=== PATIENT | male | born 1985 ===

== ENCOUNTER 2018-12-24 12:47 | Emergency (ER) | payer OTHER ==
--- NOTE | 2018-12-24 14:08 | ED PDOC ---
HPI: Psych/Substance Abuse Time Seen by Provider: 12/24/18 12:58 Chief Complaint (Nursing): Psychiatric Evaluation Chief Complaint (Provider): Psychiatric Evaluation History Per: Family (mother) Onset/Duration Of Symptoms: Days (x1 week) Current Symptoms Are (Timing): Still Present Additional History Per: Patient Additional Complaint(s): 33 year old male with pmhx of depression presents to the ED with mother for a psychiatric evaluation. Mother reports that earlier today patient's father asked if he moved something in the bathroom, and this triggered him to started yelling at his father. She also states that over the past week patient has been not wanting to leave their home, unwilling to take his psych meds, and not seeing his psychiatrist, which is unlike him. Mother notes there was no physical aggression, but his verbal aggression today prompted this eval. When asked patient why he is here today, he states that it was for the worms that were in his stomach which he has since got rid of. When asked his name, he said his name was "Elaine," but he was able to give the correct date of 12/24/18; however, he thinks he is here with his cousin and does not know what hospital he is in. Otherwise, denies suicidal ideation, drug use, and alcohol use. PMD: none provided Past Medical History Reviewed: Historical Data, Nursing Documentation, Vital Signs Vital Signs: Last Vital Signs Temp 98.8 F 12/24/18 12:49 Pulse 110 H 12/24/18 12:49 Resp 16 12/24/18 12:49 BP 184/125 H 12/24/18 12:49 Pulse Ox 98 12/24/18 12:49 - Medical History PMH: Depression - Surgical History Surgical History: No Surg Hx - Family History Family History: States: Unknown Family Hx - Living Arrangements Living Arrangements: With Family - Social History Alcohol: None Drugs: Denies - Allergies Allergies/Adverse Reactions: Allergies Allergy/AdvReac Type Severity Reaction Status Date / Time No Known Allergies Allergy Verified 12/24/18 12:49 Review of Systems ROS Statement: Except As Marked, All Systems Reviewed And Found Negative Psych: Positive for: Other (verbal aggression; unusual behavior). Negative for: Suicidal ideation (or homicidal ideation) Physical Exam - Reviewed Nursing Documentation Reviewed: Yes Vital Signs Reviewed: Yes - Physical Exam Appears: Positive for: No Acute Distress (but pt is morbidly obese and has poor hygiene) Head Exam: Positive for: ATRAUMATIC, NORMOCEPHALIC Skin: Positive for: Normal Color, Warm Eye Exam: Positive for: Normal appearance ENT: Positive for: Normal ENT Inspection Neck: Positive for: Normal, Painless ROM, Supple Cardiovascular/Chest: Positive for: Tachycardia Respiratory: Positive for: Normal Breath Sounds. Negative for: Respiratory Distress Gastrointestinal/Abdominal: Positive for: Normal Exam, Soft. Negative for: Tenderness Back: Positive for: Normal Inspection Extremity: Positive for: Normal ROM (all extremities) Neurological/Psych: Positive for: Awake, Alert, Oriented (x1 (to date; pt not oriented to person or place)), Mood/Affect (flat with poor eye contact), Other (incoherent thoughts; flight of ideas) - Laboratory Results Result Diagrams: 12/24/18 14:50 12/24/18 14:50 - ECG ECG: Positive for: Viewed By Me (and interpreted/signed by Dr. Herrera) ECG Rhythm: Positive for: Sinus Tachycardia (at 111bpm). Negative for: Sinus Bradycardia, ST/T Changes O2 Sat by Pulse Oximetry: 98 (RA) Pulse Ox Interpretation: Normal Medical Decision Making Medical Decision Making: Time: 1345 Initial Impression: psychiatric evaluation Initial Plan: --Alcohol serum --CMP --Crisis evaluation --CXR --CBC with differential --Urinalysis --UDS --Patient placed on 1:1 for safety 1445 Patient to be screened for [facility] [place] with schizophrenia unspecified as per Dr. Seals. 1655 Patient medically cleared for [facility] [place]. 23:10: Patient accepted at [facility] [place]. No bed available until possibility the am as per Octavia asbestos worker. Patient is calm. maintained on 1:1 for safety. 23:34: Patient handed-off to Dr. Luong. Pending [facility] [place]. Maintained on 1:1. Scribe Attestation: Documented by Isha Torre, acting as a scribe for Lia Ortez APN. Provider Scribe Attestation: All medical record entries made by the Scribe were at my direction and personally dictated by me. I have reviewed the chart and agree that the record accurately reflects my personal performance of the history, physical exam, medical decision making, and the department course for this patient. I have also personally directed, reviewed, and agree with the discharge instructions and disposition. Disposition - Clinical Impression Clinical Impression: Schizophrenia - Patient ED Disposition Is Patient to be Admitted: Yes Doctor Will See Patient In The: Hospital Counseled Patient/Family Regarding: Diagnosis - Disposition Disposition: Transfer of Care Disposition Time: 23:39 Condition: STABLE Forms: [employer] (Kiswahili)
[2018-12-24 14:59] LABS: BASO % 0.5 % (0.0-2.0); EOS # 0.1 K/uL (0.0-0.7); HEMOGLOBIN 14.5 g/dL (12.0-18.0); LYMPH # 1.2 K/uL (1.0-4.3); LYMPH % 18.9 % (20.0-40.0); MEAN CELL VOLUME 91.9 fl (80.0-94.0); MEAN CORPUSCULAR HEMOGLOBIN 30.3 pg (27.0-31.0); MEAN PLATELET VOLUME 9.8 fl (7.2-11.7); MONO # 0.6 K/uL (0.0-0.8); MONO % 9.4 % (0.0-10.0); NEUT # 4.4 K/uL (1.8-7.0); NEUT % 69.2 % (50.0-75.0); RBC 4.8 Mil/uL (4.40-5.90); RED CELL DISTRIBUTION WIDTH 12.5 % (11.5-14.5); WHITE BLOOD COUNT 6.4 K/uL (4.8-10.8)
--- NOTE | 2018-12-24 14:59 | RAD ---
Date of service: 12/24/2018 HISTORY: medical clearance COMPARISON: No prior. TECHNIQUE: Chest PA and lateral views FINDINGS: LUNGS: No active pulmonary disease. PLEURA: No significant pleural effusion identified. No pneumothorax apparent. CARDIOVASCULAR: No aortic atherosclerotic calcification present. Normal cardiac size. No pulmonary vascular congestion. OSSEOUS STRUCTURES: No significant abnormalities. VISUALIZED UPPER ABDOMEN: Normal. OTHER FINDINGS: None. IMPRESSION: No active disease.
[2018-12-24 15:14] LABS: ALB/GLOB RATIO 1.1 (1.0-2.1); ALBUMIN 4.6 g/dL (3.5-5.0); ALT/SGPT 145 U/L (21-72); AST/SGOT 134 U/L (17-59); BLOOD UREA NITROGEN 10 mg/dl (9-20); CALCIUM 9.4 mg/dL (8.4-10.2); GFR NON-AFRICAN AMERICAN > 60
[2018-12-24 16:29] LABS: SQUAMOUS EPITHIAL < 1 /hpf (0-5); URINE BACTERIA RARE (<OCC); URINE BILIRUBIN NEGATIVE (NEGATIVE); URINE BLOOD NEGATIVE (NEGATIVE); URINE CLARITY CLOUDY (Clear); URINE COLOR YELLOW (YELLOW); URINE GLUCOSE (UA) NEG (NEGATIVE); URINE LEUKOCYTE ESTERASE NEG Leu/uL (Negative); URINE PROTEIN 30 mg/dL (NEGATIVE)
[2018-12-24 16:41] LABS: BARBITURATES, UR NEGATIVE (NEGATIVE); BENZODIAZEPINES, UR NEGATIVE (NEGATIVE); OPIATES, UR NEGATIVE (NEGATIVE); PHENCYCLIDINE, UR NEGATIVE (NEGATIVE)
--- NOTE | 2018-12-24 20:59 | CARD ---
APPROVED REPORT Date of service: 12/24/2018 EKG Measurement Heart [id number] [id number] <Conclusion> Sinus tachycardia Otherwise normal ECG
[2018-12-24 23:27] VITALS: RESP 18
[2018-12-24 23:39] VITALS: O2SAT 98
--- NOTE | 2018-12-25 03:20 | ED PDOC ---
- Laboratory Results Result Diagrams: 12/24/18 14:50 12/24/18 14:50 Lab Results: Total Bilirubin 0.7 mg/dl (0.2-1.3) 12/24/18 14:50 AST 134 U/L (17-59) H 12/24/18 14:50 ALT 145 U/L (21-72) H 12/24/18 14:50 Alkaline Phosphatase 109 U/L (38-126) 12/24/18 14:50 Total Protein 8.8 G/DL (6.3-8.2) H 12/24/18 14:50 Albumin 4.6 g/dL (3.5-5.0) 12/24/18 14:50 Globulin 4.1 gm/dL (2.2-3.9) H 12/24/18 14:50 Albumin/Globulin Ratio 1.1 (1.0-2.1) 12/24/18 14:50 Urine Color Yellow (YELLOW) 12/24/18 16:10 Urine Clarity Cloudy (Clear) 12/24/18 16:10 Urine pH 5.0 (5.0-8.0) 12/24/18 16:10 Ur Specific [place] 1.028 (1.003-1.030) 12/24/18 16:10 Urine Protein 30 mg/dL (NEGATIVE) 12/24/18 16:10 Urine Glucose (UA) Neg mg/dL (NEGATIVE) 12/24/18 16:10 Urine Ketones Negative mg/dL (NEGATIVE) 12/24/18 16:10 Urine Blood Negative (NEGATIVE) 12/24/18 16:10 Urine Nitrate Negative (NEGATIVE) 12/24/18 16:10 Urine Bilirubin Negative (NEGATIVE) 12/24/18 16:10 Urine Urobilinogen 1.0 mg/dL (0.2-1.0) 12/24/18 16:10 Ur Leukocyte Esterase Neg [place]/uL (Negative) 12/24/18 16:10 Urine RBC (Auto) 3 /hpf (0-3) 12/24/18 16:10 Urine Microscopic WBC 3 /hpf (0-5) 12/24/18 16:10 Ur Squamous Epith Cells < 1 /hpf (0-5) 12/24/18 16:10 Urine Bacteria Rare (<OCC) 12/24/18 16:10 - ECG O2 Sat by Pulse Oximetry: 98 (RA) Medical Decision Making Medical Decision Makin:[address] Hylton to Dr. Luong. Pending bed available at [facility]. 01:00 Evaluation at bedside and patient is standing up watching TV. Patient has no complaints and gives thumbs up when ask how he is doing. 04:00 Patient resting in bed comfortably 07:[address] Erwin pending bed availability at [facility]. Scribe Attestation: Documented by Nisha Boles, acting as a scribe for Jeremy Luong. Provider Scribe Attestation: All medical record entries made by the Scribe were at my direction and personally dictated by me. I have reviewed the chart and agree that the record accurately reflects my personal performance of the history, physical exam, medical decision making, and the department course for this patient. I have also personally directed, reviewed, and agree with the discharge instructions and disposition. Disposition - Clinical Impression Clinical Impression: Schizophrenia - POA Present On Arrival: None - Disposition Disposition: Transfer of Care Disposition Time: 07:00 Condition: STABLE Forms: [employer] (Khmer) Patient Signed Over To: Jessy Erwin Handoff Comments: pending bed availability at [facility]
--- NOTE | 2018-12-25 07:07 | ED PDOC ---
- Laboratory Results Result Diagrams: 12/24/18 14:50 12/24/18 14:50 Lab Results: Total Bilirubin 0.7 mg/dl (0.2-1.3) 12/24/18 14:50 AST 134 U/L (17-59) H 12/24/18 14:50 ALT 145 U/L (21-72) H 12/24/18 14:50 Alkaline Phosphatase 109 U/L (38-126) 12/24/18 14:50 Total Protein 8.8 G/DL (6.3-8.2) H 12/24/18 14:50 Albumin 4.6 g/dL (3.5-5.0) 12/24/18 14:50 Globulin 4.1 gm/dL (2.2-3.9) H 12/24/18 14:50 Albumin/Globulin Ratio 1.1 (1.0-2.1) 12/24/18 14:50 Urine Color Yellow (YELLOW) 12/24/18 16:10 Urine Clarity Cloudy (Clear) 12/24/18 16:10 Urine pH 5.0 (5.0-8.0) 12/24/18 16:10 Ur Specific [place] 1.028 (1.003-1.030) 12/24/18 16:10 Urine Protein 30 mg/dL (NEGATIVE) 12/24/18 16:10 Urine Glucose (UA) Neg mg/dL (NEGATIVE) 12/24/18 16:10 Urine Ketones Negative mg/dL (NEGATIVE) 12/24/18 16:10 Urine Blood Negative (NEGATIVE) 12/24/18 16:10 Urine Nitrate Negative (NEGATIVE) 12/24/18 16:10 Urine Bilirubin Negative (NEGATIVE) 12/24/18 16:10 Urine Urobilinogen 1.0 mg/dL (0.2-1.0) 12/24/18 16:10 Ur Leukocyte Esterase Neg [place]/uL (Negative) 12/24/18 16:10 Urine RBC (Auto) 3 /hpf (0-3) 12/24/18 16:10 Urine Microscopic WBC 3 /hpf (0-5) 12/24/18 16:10 Ur Squamous Epith Cells < 1 /hpf (0-5) 12/24/18 16:10 Urine Bacteria Rare (<OCC) 12/24/18 16:10 - ECG O2 Sat by Pulse Oximetry: 98 (RA) Pulse Ox Interpretation: Normal Medical Decision Making Medical Decision Making: Time: 7:00 Patient was signed out to me by Dr. Luong pending [facility] bed. Scribe Attestation: Documented by Rosey Frederick, acting as a scribe for Jessy Erwin MD. Provider Scribe Attestation: All medical record entries made by the Scribe were at my direction and personally dictated by me. I have reviewed the chart and agree that the record accurately reflects my personal performance of the history, physical exam, medical decision making, and the department course for this patient. I have also personally directed, reviewed, and agree with the discharge instructions and disposition. Disposition - Clinical Impression Clinical Impression: Schizophrenia - POA Present On Arrival: None - Disposition Disposition: Transfer of Care Disposition Time: 15:00 Condition: STABLE Forms: [facility] (Egyptian) Patient Signed Over To: Nancy Short
[2018-12-25 14:26] VITALS: TEMP 98.5
--- NOTE | 2018-12-25 16:46 | ED PDOC ---
- Laboratory Results Result Diagrams: 12/24/18 14:50 12/24/18 14:50 Lab Results: Total Bilirubin 0.7 mg/dl (0.2-1.3) 12/24/18 14:50 AST 134 U/L (17-59) H 12/24/18 14:50 ALT 145 U/L (21-72) H 12/24/18 14:50 Alkaline Phosphatase 109 U/L (38-126) 12/24/18 14:50 Total Protein 8.8 G/DL (6.3-8.2) H 12/24/18 14:50 Albumin 4.6 g/dL (3.5-5.0) 12/24/18 14:50 Globulin 4.1 gm/dL (2.2-3.9) H 12/24/18 14:50 Albumin/Globulin Ratio 1.1 (1.0-2.1) 12/24/18 14:50 Urine Color Yellow (YELLOW) 12/24/18 16:10 Urine Clarity Cloudy (Clear) 12/24/18 16:10 Urine pH 5.0 (5.0-8.0) 12/24/18 16:10 Ur Specific [place] 1.028 (1.003-1.030) 12/24/18 16:10 Urine Protein 30 mg/dL (NEGATIVE) 12/24/18 16:10 Urine Glucose (UA) Neg mg/dL (NEGATIVE) 12/24/18 16:10 Urine Ketones Negative mg/dL (NEGATIVE) 12/24/18 16:10 Urine Blood Negative (NEGATIVE) 12/24/18 16:10 Urine Nitrate Negative (NEGATIVE) 12/24/18 16:10 Urine Bilirubin Negative (NEGATIVE) 12/24/18 16:10 Urine Urobilinogen 1.0 mg/dL (0.2-1.0) 12/24/18 16:10 Ur Leukocyte Esterase Neg [place]/uL (Negative) 12/24/18 16:10 Urine RBC (Auto) 3 /hpf (0-3) 12/24/18 16:10 Urine Microscopic WBC 3 /hpf (0-5) 12/24/18 16:10 Ur Squamous Epith Cells < 1 /hpf (0-5) 12/24/18 16:10 Urine Bacteria Rare (<OCC) 12/24/18 16:10 - ECG O2 Sat by Pulse Oximetry: 98 (RA) Pulse Ox Interpretation: Normal Medical Decision Making Medical Decision Making: Time: 15:00 Patient signed out to me by Dr. Erwin pending [facility] placement. He was reportedly m edically optimized overnight and just pending bed placement and transfer. Patient is well with no complaints and no need for medical intervention at this time. Scribe Attestation: Documented by Rosey Frederick, acting as a scribe for Nancy Short MD. Provider Scribe Attestation: All medical record entries made by the Scribe were at my direction and personally dictated by me. I have reviewed the chart and agree that the record accurately reflects my personal performance of the history, physical exam, medical decision making, and the department course for this patient. I have also personally directed, reviewed, and agree with the discharge instructions and disposition. Disposition - Clinical Impression Clinical Impression: Schizophrenia - POA Present On Arrival: None - Disposition Disposition: Transfer of Care Disposition Time: 19:00 Condition: STABLE Forms: [employer] (Mongolian)
[2018-12-25 16:52] VITALS: BP 121/60; PULSE 81
== END 2018-12-25 17:03 | disposition short-term general hospital (02) ==
LOC: H.ER 12:47
DX: F20.9 Schizophrenia, unspecified (principal); Z86.59 Personal history of other mental and behavioral disorders; Z00.8 Encounter for other general examination